=== PATIENT | female | born 2000 | race Caucasian/White ===

== ENCOUNTER 2018-05-25 22:17 | Emergency (ER) | payer OTHER ==
[~2018-05-25] VITALS: Ht 154.9 cm; Wt 47.6 kg
--- NOTE | 2018-05-25 22:35 | ED GI/GU/ABDOMINAL COMPLAINT ---
History of Present Illness General Chief Complaint: General Adult Stated Complaint: L SIDE PAIN THAT RADIATES TO BACK PER PT Source: patient, old records Exam Limitations: no limitations Vital Signs & Intake/Output Vital Signs & Intake/Output Vital Signs Date Time Temp Pulse Resp B/P B/P Pulse O2 O2 Flow FiO2 Mean Ox Delivery Rate 05/252 97.7 71 16 132/86 97 Room Air ED Intake and Output 05/26 0000 05/25 1200 Intake Total Output Total Balance Patient 105 lb Weight Weight Reported by Patient Measurement Method Allergies Coded Allergies: alexx (Intermediate, HIVES 05/25/18) Triage Note: PT TO ER C/C 1 DAY HX OF LLQ PAIN CRAMPING IN NATURE +N/V. DENIES URINARY S/S. Triage Nurses Notes Reviewed? yes ? N Is pt currently ? No HPI: 18yoF with history of narcolepsy, depression complaining of LLQ abdominal pain, nausea, vomiting. Pt was sleeping when she had a sudden onset of pain that woke her up. The pain is localized to the LLQ with radiation to the back. Pt complains of nausea and has vomited without any relief of symptoms. Pt denies any headaches, fevers, chills, chest pain, dysuria. Pt is sexually active with her boyfriend; she is on OCP and boyfriend uses condoms during intercourse. No history of STIs. No prior abdominal surgeries. (Whitley CAGE,Genevieve) Reconcile Medications Ibuprofen 600 MG TABLET 1 TAB PO TID PRN PAIN with food Ondansetron (Zofran Odt) 4 MG TAB.RAPDIS 1 TAB SL TID PRN NAUSEA Oxycodone HCl/Acetaminophen (Percocet 5-325 MG Tablet) 5 MG-325 MG TABLET 1 TAB PO 4XDP PRN PAIN SEVEN...[id number] (Ivette CAGE,Edgar Torres) Past History Travel History Traveled to [place] past 21 day No Medical History Any Pertinent Medical History? see below for history Neurological: NARCOLEPSY Psychiatric: depression Surgical History Surgical History: non-contributory Psychosocial History What is your primary language Welsh Tobacco Use: Never used Family History Hx Contributory? No (Whitley CAGE,Genevieve) Review of Systems Review of Systems Constitutional: Reports: no symptoms. EENTM: Reports: no symptoms. Respiratory: Reports: no symptoms. Cardiovascular: Reports: no symptoms. GI: Reports: no symptoms. Genitourinary: Reports: no symptoms. Musculoskeletal: Reports: no symptoms. Skin: Reports: no symptoms. Neurological/Psychological: Reports: no symptoms. Hematologic/Endocrine: Reports: no symptoms. Immunologic/Allergic: Reports: no symptoms. All Other Systems: Reviewed and Negative (Genevieve Arreaga MD) Physical Exam Physical Exam General Appearance: well developed/nourished, no apparent distress Head: atraumatic, normal appearance Eyes: Bilateral: normal appearance. Ears, Nose, Throat, Mouth: hearing grossly normal, moist mucous membrane Neck: normal inspection, full range of motion Respiratory: normal breath sounds, chest non-tender, no respiratory distress Cardiovascular: regular rate/rhythm Gastrointestinal: LLQ TENDERNESS WITH REBOUND WITH OR GUARDING Back: normal inspection, normal range of motion Extremities: normal range of motion Neurologic/Psych: awake, alert, oriented x 3, normal mood/affect Skin: intact, normal color, warm/dry Core Measures ACS in differential dx? No (Genevieve Arreaga MD) Core Measures Sepsis Present: No Sepsis Focused Exam Completed? No (Ivette CAGE,Edgar Torres) Progress Differential Diagnosis: AAA, AMI, appendicitis, biliary colic, bowel obstruction , colon cancer, cholecystitis, diverticulitis, ectopic , endometritis, esophageal varices, gastritis, hepatitis, hernia, hemorrhoids, ischemic bowel, inflamm bowel dis, intrauterine , kidney stone, Stefanie-Yadi tear, ovarian cyst, ovarian torsion, pancreatitis, PID/cervicitis, peptic ulcer, PUD/ GERD, perforated viscous, SBO, threatened AB, UTI/pyelo Plan of Care: Orders Procedure Date/time Status Add-on Test (ER Only) 05/26 0050 Active URINALYSIS 05/25 2222 Complete HUMAN BETA HCG SCREEN 05/25 2222 Complete COMPREHENSIVE METABOLIC PANEL 05/25 2222 Complete CBC WITHOUT DIFFERENTIAL 05/25 2222 Complete Current Medications Sig/Delia Start time Last Medication Dose Stop Time Status Admin Ceftriaxone Sodium 1,000 MG ONCE ONE 05/26 100 UNVr (Rocephin) 05/26 101 Ciprofloxacin 500 MG ONCE ONE 05/26 100 UNVr (Cipro) 05/26 101 Laboratory Tests 05/25/18 2240: Anion Gap 15, Estimated GFR > 60, BUN/Creatinine Ratio 10.0, Glucose 99, Calcium 9.6, Total Bilirubin 0.5, AST 38 H, ALT 33, Alkaline Phosphatase 41, Total Protein 7.6, Albumin 4.4, Globulin 3.2, Albumin/Globulin Ratio 1.4, Total Beta HCG NEGATIVE, CBC w Diff NO MAN DIFF REQ, RBC 4.66, MCV 86.4, MCH 28.6, MCHC 33.1, RDW 12.9, MPV 7.3 L, Gran % 44.1, Lymphocytes % 40.0, Monocytes % 8.3, Eosinophils % 7.1 H, Basophils % 0.5, Absolute Granulocytes 4.0, Absolute Lymphocytes 3.6 H, Absolute Monocytes 0.8 H, Absolute Eosinophils 0.6, Absolute Basophils 0 05/25/182221: Urinalysis MOD H, Urine Color YEL, Urine Clarity CLDY H, Urine pH 8.5 H, Ur Specific [place] 1.015, Urine Protein 30 H, Urine Ketones 15 H, Urine Nitrite POS H, Urine Bilirubin NEG, Urine Urobilinogen 1.0, Ur Leukocyte Esterase SMALL H, Ur Microscopic SEDIMENT EXAMINED, Urine RBC 50-75 H, Urine WBC 5-10 H, Ur Epithelial Cells FEW, Urine Bacteria MANY H, Urine Hemoglobin LARGE H, Urine Glucose NEG Initial ED EKG: none (Whitley CAGE,Genevieve) Diagnostic Imaging: Viewed by Me: CT Scan. Discussed w/RAD: CT Scan. Radiology Impression: PATIENT: SHERITA WYATT PRESENT AGE: 18 PATIENT ACCOUNT NO: [id number] : 98 LOCATION: [facility] ORDERING PHYSICIAN: Genevieve Arreaga MD SERVICE DATE: 05/25/18 EXAM TYPE: CAT - CT ABD & PELVIS W/O IV CONTRAS EXAMINATION: CT ABDOMEN AND PELVIS WITHOUT CONTRAST CLINICAL INFORMATION: Left lower quadrant pain. Left flank pain. COMPARISON: None. TECHNIQUE: Contiguous axial thin section helical images of the abdomen and pelvis were performed without oral or IV contrast. The data set was reformatted in the coronal and sagittal planes and reviewed on an independent workstation. DLP: 248 mGy-cm. FINDINGS: The visualized lung bases are clear. The visualized portions of the heart are unremarkable. The liver is of normal size and attenuation without focal lesions nor intrahepatic biliary ductal dilation. A normal gallbladder is identified. There is no wall thickening or discernible pericholecystic fluid. The spleen, pancreas, adrenal glands are unremarkable. Both kidneys are of normal size and attenuation. There is left grade 2 hydroureteronephrosis secondary to two obstructive proximal left ureteral calculi. The largest measures 4 mm. There is no abdominal free fluid. There is neither mesenteric nor retroperitoneal lymphadenopathy. Normal unopacified loops of small and large bowel are identified. There is no pelvic free fluid. The urinary bladder is unremarkable. There is neither pelvic nor inguinal lymphadenopathy. Bone windows: Neither sclerotic nor lytic bone lesions are identified. IMPRESSION: Left grade 2 hydroureteronephrosis secondary to two adjacent obstructive proximal left ureteral calculi. DICTATED BY: Herman Friedman MD DATE/TIME DICTATED:05/25/182335 INSULATION WORKER FURNACE INSTALLER:ORLIN DATE/TIME TRANSCRIBED:05/25/182335 CONFIDENTIAL, DO NOT COPY WITHOUT APPROPRIATE AUTHORIZATION. <Electronically signed in Other Vendor System> SIGNED BY: Herman Friedman MD 05/25/18 9879 (Ivette CAGE,Edgar Torres) Departure Departure Condition: Stable Referrals: Unknown (PCP/Family) Departure Forms: Customer Survey General Discharge Information (Whitley CAGE,Genevieve) Departure Disposition: HOME OR SELF CARE Clinical Impression Primary Impression: Renal colic on left side Secondary Impressions: Kidney stones Prescriptions: Current Visit Scripts Ibuprofen 1 TAB PO TID PRN PAIN #30 TAB with food Oxycodone HCl/Acetaminophen (Percocet 5-325 MG Tablet) 1 TAB PO 4XDP PRN PAIN #7 TAB SEVEN...[id number] Ondansetron (Zofran Odt) 1 TAB SL TID PRN NAUSEA #10 TAB Comments 05/26/18, 0:53... Pt feeling comfortable in ED... u/a suggestive of infection... will treat for uti... pt referred to urologist... discussed at length with patient. (Ivette CAGE,Edgar Torres)
[2018-05-25 22:51] LABS: ABSOLUTE BASOPHIL COUNT 0 /CUMM (0.0-0.2); ABSOLUTE EOSINOPHIL COUNT 0.6 /CUMM (0.0-0.7); ABSOLUTE LYMPH COUNT 3.6 /CUMM (1.2-3.4); ABSOLUTE MONOCYTE COUNT 0.8 /CUMM (0.10-0.60); BASOPHIL % 0.5 % (0.0-2.0); EOSINOPHIL % 7.1 % (0-5); GRANULOCYTE % 44.1 % (42.2-75.2); HEMATOCRIT 40.3 % (37-47); MEAN CORPUSCULAR HGB 28.6 PG (27.0-31.0); MEAN CORPUSCULAR HGB CONC 33.1 G/DL (33.0-37.0); MEAN CORPUSCULAR VOLUME 86.4 FL (81.0-99.0); MEAN PLATELET VOLUME 7.3 FL (7.4-10.4); PLATELET COUNT 389 /CUMM (130-400); RBC DISTRIBUTION WIDTH 12.9 % (11.5-14.5); RED BLOOD CELL CT 4.66 /CUMM (4.20-5.40); WHITE BLOOD CELL COUNT 9.1 /CUMM (4.8-10.8)
--- NOTE | 2018-05-25 23:43 | CT SCAN REPORT ---
EXAMINATION: CT ABDOMEN AND PELVIS WITHOUT CONTRAST CLINICAL INFORMATION: Left lower quadrant pain. Left flank pain. COMPARISON: None. TECHNIQUE: Contiguous axial thin section helical images of the abdomen and pelvis were performed without oral or IV contrast. The data set was reformatted in the coronal and sagittal planes and reviewed on an independent workstation. DLP: 248 mGy-cm. FINDINGS: The visualized lung bases are clear. The visualized portions of the heart are unremarkable. The liver is of normal size and attenuation without focal lesions nor intrahepatic biliary ductal dilation. A normal gallbladder is identified. There is no wall thickening or discernible pericholecystic fluid. The spleen, pancreas, adrenal glands are unremarkable. Both kidneys are of normal size and attenuation. There is left grade 2 hydroureteronephrosis secondary to two obstructive proximal left ureteral calculi. The largest measures 4 mm. There is no abdominal free fluid. There is neither mesenteric nor retroperitoneal lymphadenopathy. Normal unopacified loops of small and large bowel are identified. There is no pelvic free fluid. The urinary bladder is unremarkable. There is neither pelvic nor inguinal lymphadenopathy. Bone windows: Neither sclerotic nor lytic bone lesions are identified. IMPRESSION: Left grade 2 hydroureteronephrosis secondary to two adjacent obstructive proximal left ureteral calculi.
[2018-05-25] MEDS ORDERED: PERCOCET 5-3251 EACH PO (23:57)
[2018-05-25] MEDS ORDERED: IBUPROFEN600 M1 PO (23:57)
[2018-05-25] MEDS ORDERED: ZOFRAN ODT4 M1 SL (23:57)
[2018-05-26 01:03] VITALS: BP 122/67
[2018-05-30] MEDS ORDERED: BACTRIM DS TAB1 EACH PO (14:26)
== END 2018-05-26 01:03 ==
LOC: ERH 22:17 → EDBD 22:30 → ERH 05-26 01:03
PROVIDERS: Internal Medicine
DX: N23 Unspecified renal colic (principal); N20.0 Calculus of kidney; R10.32 Left lower quadrant pain; R11.2 Nausea with vomiting, unspecified
CPT/HCPCS: 74176; 81001; 87086; 96361; 96374; 96375; J0696; J1885